=== PATIENT | male | born 1990 | race African-American/Black ===

== ENCOUNTER 2016-11-20 09:01 | Emergency (ER) | payer SELFPAY ==
[~2016-11-20] VITALS: Ht 172.7 cm; Wt 72.7 kg
[~2016-11-20 09:01] MED LIST: AMOXICILLIN 8751 TAB PO; DESYREL 50MG50 MG PO; FLOVENT 110MCG7.9 GM IH; FLOVENT0.22 MG/AC IH; LATUDA80 MG PO; MULTIPLE VITAMI1 CAP PO; PERCOCET 325 MG1 TA2 PO; PREDNISONE10 MG PO; PROVENTIL0.09 MG/A1 IH; SINGULAIR 110 MG/TAB PO; SINGULAIR10 MG PO; VITAMINS; ZYRTEC 10MG10 MG PO; [UNRECOGNIZED DRUG - OTHER]
[2016-11-20] MEDS ORDERED: ZOVIRAX800 MG PO (09:47)
[2016-11-20 09:53] VITALS: BP 138/87; PULSE 70; TEMP 98.3
== END 2016-11-20 09:54 | disposition home or self-care (01) ==
LOC: COL.ER 09:01
DX: B00.9 Herpesviral infection, unspecified (principal); F32.9 Major depressive disorder, single episode, unspecified; J45.909 Unspecified asthma, uncomplicated; F17.210 Nicotine dependence, cigarettes, uncomplicated

== ENCOUNTER 2016-12-24 09:43 | Emergency (ER) | payer MEDICARE ==
[~2016-12-24] VITALS: Ht 172.7 cm; Wt 79.5 kg
[~2016-12-24 09:43] MED LIST changes: +ZOVIRAX800 MG PO
[2016-12-24 09:50] VITALS: BP 148/100; PULSE 61; TEMP 97.8
[2016-12-24] MEDS ORDERED: NORCO 325 MG-51 TAB PO (10:53)
[2016-12-24] MEDS ORDERED: PEN-VEE K500 MG PO (10:53)
== END 2016-12-24 11:06 | disposition home or self-care (01) ==
LOC: COL.ER 09:43
DX: K08.89 Other specified disorders of teeth and supporting structures (principal); F17.210 Nicotine dependence, cigarettes, uncomplicated

== ENCOUNTER 2018-12-29 22:20 | Emergency (ER) | payer SELFPAY ==
[~2018-12-29] VITALS: Ht 167.6 cm; Wt 75.0 kg
[~2018-12-29 22:20] MED LIST changes: +NORCO 325 MG-51 TAB PO; +PEN-VEE K500 MG PO
[2018-12-29 22:28] VITALS: TEMP 98.9
[2018-12-30 00:40] LABS: COLLECTION METHOD CLEAN CATCH
[2018-12-30 00:57] LABS: PH 6 (5-8); SQUAMOUS EPITHELIAL None Seen /hpf; URINE APPEARANCE Cloudy; URINE BACTERIA None Seen /hpf; URINE BILIRUBIN Negative (NEGATIVE); URINE BLOOD Negative (NEGATIVE); URINE COLOR Yellow; URINE GLUCOSE Negative (NEGATIVE); URINE KETONE Negative (NEGATIVE); URINE LEUKOCYTE ESTERASE 3+ (NEGATIVE); URINE NITRATE Negative (NEGATIVE); URINE PROTEIN(semi-quant) Negative (NEGATIVE); URINE UROBILINOGEN Negative (NEGATIVE)
[2018-12-30 01:33] LABS: TRICYCLIC ANTIDEPRESS URINE NEGATIVE
[2018-12-30 01:38] LABS: BASO # 0.1 (0.0-0.2); BASO % 1.2 % (0.0-2.0); EOS # 0.3 (0.0-0.7); EOS % 4.1 % (0-4.0); GRAN # 3.1 (1.4-6.5); GRAN % 50.9 % (42.2-75.2); HEMATOCRIT 49.5 % (42.0-52.0); HEMOGLOBIN 15.9 g/dl (13.5-18.0); LYMPH # 1.9 (1.2-3.4); LYMPH % 31.3 % (20.0-51.0); MEAN CELL VOLUME 89 fl (80.0-100.0); MEAN CORPUSCULAR HEMOGLOBIN 29 pg (27.0-31.0); MEAN CORPUSCULAR HGB CONC 32 g/dl (33.0-37.0); MEAN PLATELET VOLUME 9.9 fl (7.4-10.4); MONO # 0.7 (0.1-0.6); MONO % 11.8 % (1.7-9.3); PLATELET COUNT 210 K/mm3 (130-400); RED BLOOD COUNT 5.56 M/mm3 (4.20-5.60); REDCELL DISTRIBUTION WIDTH-CV 12.9 % (11.5-14.5)
[2018-12-30 01:52] LABS: ALANINE AMINOTRANSFERASE 9 U/L (21-72); ALBUMIN 4.1 gm/dL (3.5-5.0); ALKALINE PHOSPHATASE 118 U/L (50-136); ANION GAP 9 mmol/L (7-16); AST,SGOT 26 U/L (15-37); BILIRUBIN,TOTAL 0.2 mg/dL (0.0-1.0); BLOOD UREA NITROGEN 6 mg/dL (9-20); CALCIUM 9.3 mg/dL (8.4-10.2); CARBON DIOXIDE 31 mmol/L (22-30); CHLORIDE 101 mmol/L (98-107); CREATININE, serum 0.79 (0.66-1.25); GLUCOSE 98 mg/dL (74-106); POTASSIUM 4.2 mmol/L (3.4-5.0); SODIUM 141 mmol/L (137-145); TOTAL PROTEIN 7.6 gm/dL (6.4-8.2)
[2018-12-30 02:13] LABS: C-REACTIVE PROTEIN < 0.5 mg/dL (0.0-0.9); LIPASE 403 U/L (23-300)
[2018-12-30] MEDS ORDERED: LEVAQUIN 5500 MG/TA1 PO (02:31)
[2018-12-30 02:45] VITALS: BP 121/81; PULSE 84
== END 2018-12-30 02:45 | disposition home or self-care (01) ==
LOC: COL.ER 22:20
PROVIDERS: Emergency Medicine; Nurse Practitioner
DX: N39.0 Urinary tract infection, site not specified (principal); J45.909 Unspecified asthma, uncomplicated; F31.9 Bipolar disorder, unspecified; F43.10 Post-traumatic stress disorder, unspecified; F17.210 Nicotine dependence, cigarettes, uncomplicated
CPT/HCPCS: J0696; J1885; J2360

== ENCOUNTER → 2018-12-31 | Outpatient (CLI) | payer SELFPAY ==
[~2018-12-31] MED LIST changes: +LEVAQUIN 5500 MG/TA1 PO
[2018-12-31 18:36] VITALS: BP 153/92; PULSE 100; TEMP 98.6
== END ==
LOC: EUO 18:06
DX: A54.9 Gonococcal infection, unspecified (principal)
CPT/HCPCS: J0696

== ENCOUNTER 2019-02-08 02:18 | Emergency (ER) | payer SELFPAY ==
[~2019-02-08] VITALS: Ht 170.2 cm; Wt 75.0 kg
[2019-02-08 02:19] VITALS: BP 156/91; TEMP 97.8
[2019-02-08] MEDS ORDERED: NORCO 325 MG-51 TAB PO (03:09)
[2019-02-08 03:34] VITALS: PULSE 89
== END 2019-02-08 03:36 | disposition home or self-care (01) ==
LOC: COL.ER 02:18
DX: S42.002A Fracture of unspecified part of left clavicle, initial encounter for closed fracture (principal); F43.10 Post-traumatic stress disorder, unspecified; F17.210 Nicotine dependence, cigarettes, uncomplicated; V19.3XXA Pedal cyclist (driver) (passenger) injured in unspecified nontraffic accident, initial encounter